=== PATIENT | male | born 1980 | race Caucasian/White ===

== ENCOUNTER 2017-11-19 12:22 | Emergency (ER) | payer SELFPAY ==
--- NOTE | 2017-11-19 12:46 | ER Document Report ---
ED Medical Screen (RME) - General Chief Complaint: Hip Pain Stated Complaint: FALL/HIP/LEG PAIN Time Seen by Provider: 11/19/17 12:39 Notes: Slipped on the ice yesterday landing on his right hip. Boyd a contused hip, but they continue to walk around on it yesterday. This morning has pain swelling was unable to get his shoe on and difficulty moving the foot. Numbness to the foot. I have greeted and performed a rapid initial assessment of this patient. A comprehensive ED assessment and evaluation of the patient, analysis of test results and completion of the medical decision making process will be conducted by additional ED providers. TRAVEL OUTSIDE OF THE [place] IN LAST 30 DAYS: No - Related Data Allergies/Adverse Reactions: No Known Allergies Allergy (Verified 11/19/17 12:23) Past Medical History - Immunizations Hx Diphtheria, Pertussis, Tetanus Vaccination: Yes Physical Exam - Vital signs Vitals: Temp Pulse Resp BP Pulse Ox 98.1 F 85 16 142/80 H 96 11/19/17 12:27 11/19/17 12:27 11/19/17 12:27 11/19/17 12:27 11/19/17 12:27 Course - Vital Signs Vital signs: Temp Pulse Resp BP Pulse Ox 98.1 F 85 16 142/80 H 96 11/19/17 12:27 11/19/17 12:27 11/19/17 12:27 11/19/17 12:27 11/19/17 12:27
[2017-11-19] MEDS ORDERED: OXYCODONE-ACETAMINOPHEN 5-325 MG TABLET PO ONE (13:17)
[2017-11-19] MEDS ORDERED: KETOROLAC TROMETHAMINE 60 MG/2 ML SDV IM ONE (13:17)
--- NOTE | 2017-11-19 13:19 | ER Document Report ---
ED General - General Chief Complaint: Hip Pain Stated Complaint: FALL/HIP/LEG PAIN Time Seen by Provider: 11/19/17 12:39 Mode of Arrival: Ambulatory Information source: Patient Notes: 37-year-old man with no medical problems presents to the emergency room with right hip and right femur pain after falling on the ice in the parking lot yesterday. Patient is having difficult time walking. He denies any medicines at this time. He denies any problems with bleeding. TRAVEL OUTSIDE OF THE [place] IN LAST 30 DAYS: No - HPI Onset: Yesterday Onset/Duration: Gradual Quality of pain: Dull Severity: Moderate Pain Level: 4 Associated symptoms: denies: Chest pain, Fever, Shortness of breath Exacerbated by: Denies Relieved by: Denies Similar symptoms previously: No Recently seen / treated by doctor: No - Related Data Allergies/Adverse Reactions: No Known Allergies Allergy (Verified 11/19/17 12:23) Past Medical History - General Information source: Patient - Social History Smoking Status: Never Smoker Cigarette use (# per day): No Chew tobacco use (# tins/day): No Frequency of alcohol use: Social Drug Abuse: None Lives with: Family Family History: CAD, DM Patient has suicidal ideation: No Patient has homicidal ideation: No - Medical History Medical History: Negative Renal/ Medical History: Denies: Hx Peritoneal Dialysis Surgical Hx: Negative - Immunizations Hx Diphtheria, Pertussis, Tetanus Vaccination: Yes Review of Systems - Review of Systems Constitutional: denies: Fever EENT: No symptoms reported Cardiovascular: No symptoms reported Respiratory: No symptoms reported Gastrointestinal: No symptoms reported Genitourinary: No symptoms reported Male Genitourinary: No symptoms reported Musculoskeletal: See HPI Skin: No symptoms reported Hematologic/Lymphatic: No symptoms reported Neurological/Psychological: No symptoms reported Physical Exam - Vital signs Vitals: Temp Pulse Resp BP Pulse Ox 98.1 F 85 16 142/80 H 96 11/19/17 12:27 11/19/17 12:27 11/19/17 12:27 11/19/17 12:27 11/19/17 12:27 Notes: Physical exam: GENERAL: 37-year-old man, alert and oriented 3, no acute distress HEAD: Atraumatic, normocephalic. EYES: Pupils equal round and reactive to light, extraocular movements intact, sclera anicteric, conjunctiva are normal. ENT: TMs normal, nares patent, oropharynx clear without exudates. Moist mucous membranes. NECK: Normal range of motion, supple without obvious mass or JVD. LUNGS: Breath sounds clear to auscultation bilaterally and equal. No wheezes rales or rhonchi. HEART: Regular rate and rhythm without murmurs, rubs or gallops. ABDOMEN: Soft, normoactive bowel sounds. No tenderness to palpation. No guarding, no rebound. No masses appreciated. Back: T and L-spine nontender EXTREMITIES: Large contusion to the right hip extending to the mid femur. Distal pulses intact. Knee nontender, tib-fib nontender, foot nontender. NEUROLOGICAL: Cranial nerves II through XII grossly intact. Normal speech, moving all extremities. PSYCH: Normal mood, normal affect. SKIN: Large contusion noted on exam as mentioned above Course - Vital Signs Vital signs: Temp Pulse Resp BP Pulse Ox 98.1 F 84 18 117/79 95 11/19/17 12:27 11/19/17 16:07 11/19/17 16:07 11/19/17 16:07 11/19/17 16:07 Discharge - Discharge Clinical Impression: Thigh contusion status post fall Condition: Stable Disposition: HOME, SELF-CARE Instructions: Contusion ([facility]) Additional Instructions: Recommendations: You could take Aleve for the next several days. Take Percocet for pain unrelieved by the Aleve. Expect to have the bruising become more obvious: It will become darker and spread. You can try ice packs over the tender area for the next 2 days. Return to the emergency room for increasing pain, redness, swelling or any concerns or getting worse. The pain medicine you're taking prescribed as a narcotic. There are several important things you should know about this medicine: 1. This medicine contains Tylenol: It is important that you do not take Tylenol (or acetaminophen) while on this medicine. Tylenol is metabolized by the liver and taking too much Tylenol (acetaminophen) can lay to liver damage and even liver failure. 2. Taking narcotics for too long can lead to physical and mental dependence. Take this medicine only if really needed and in the lowest quantity to achieve pain relief. 3. Do not drink alcohol while on this medicine. Alcohol interacts with narcotics and the combination can be dangerous. 4. Do not drive or operate machinery while on this medicine. 5. Narcotics do cause constipation, so drink plenty of fluids and daily stool softeners. Prescriptions: Oxycodone HCl/Acetaminophen [Percocet 5-325 mg Tablet] 1 - 2 tab PO ASDIR PRN # 25 tablet PRN Reason:
--- NOTE | 2017-11-19 13:23 | RADIOLOGY REPORT (SQ) ---
EXAM DESCRIPTION: HIP RIGHT AP/LATERAL COMPLETED DATE/TIME: 11/19/2017 1:07 pm REASON FOR STUDY: Fell on hip, pain and swelling COMPARISON: None. NUMBER OF VIEWS: Two views. TECHNIQUE: AP pelvis and additional frog-leg view of the right hip. LIMITATIONS: None. FINDINGS: MINERALIZATION: Normal. RIGHT HIP: No fracture or dislocation. No worrisome bone lesions. LEFT HIP: No fracture or dislocation. No worrisome bone lesions. PUBIS AND ISCHIUM: No fracture. PELVIS: No fracture. SACRUM: No fracture or dislocation. No worrisome bone lesions. LOWER LUMBAR SPINE: No fracture or dislocation. No worrisome bone lesions. No significant disc disea se. SOFT TISSUES: No findings. OTHER: No other significant finding. IMPRESSION: NEGATIVE STUDY OF THE RIGHT HIP. NO RADIOGRAPHIC EVIDENCE OF ACUTE INJURY. TECHNICAL DOCUMENTATION: JOB ID: [id number] [employer]- All Rights Reserved
--- NOTE | 2017-11-19 13:37 | RADIOLOGY REPORT (SQ) ---
EXAM DESCRIPTION: FEMUR RIGHT COMPLETED DATE/TIME: 11/19/2017 1:26 pm REASON FOR STUDY: right thigh pain s/p fall COMPARISON: None. NUMBER OF VIEWS: Two views. TECHNIQUE: Two radiographic images acquired of the right femur to include hip and knee in at least o ne projection. LIMITATIONS: None. FINDINGS: MINERALIZATION: Normal. BONES: No acute fracture. No worrisome bone lesions. SOFT TISSUES: No obvious swelling or foreign body. OTHER: No other significant finding. IMPRESSION: NEGATIVE STUDY OF THE RIGHT FEMUR. NO RADIOGRAPHIC EVIDENCE OF ACUTE INJURY. TECHNICAL DOCUMENTATION: JOB ID: [id number] [employer]- All Rights Reserved
[2017-11-19 16:08] VITALS: BP 117/79
== END 2017-11-19 16:18 | disposition home or self-care (01) ==
LOC: ER 12:22
DX: S70.11XA Contusion of right thigh, initial encounter (principal); S70.01XA Contusion of right hip, initial encounter; M25.551 Pain in right hip; M89.8X5 Other specified disorders of bone, thigh; W00.0XXA Fall on same level due to ice and snow, initial encounter; Y92.481 Parking lot as the place of occurrence of the external cause
CPT/HCPCS: 99283; 96372; 73552; 73502; J1885

== ENCOUNTER 2018-08-19 00:56 | Emergency (ER) | payer OTHER ==
--- NOTE | 2018-08-19 01:37 | ER Document Report ---
ED GI/ - General Mode of Arrival: Ambulatory Information source: Patient TRAVEL OUTSIDE OF THE [place] IN LAST 30 DAYS: No <IESHA RAWLS - Last Filed: 08/19/18 03:22> <BLAKE LOVE - Last Filed: 08/20/18 15:44> - General Chief Complaint: Flank Pain Stated Complaint: ABDOMINAL PAIN Time Seen by Provider: 08/19/18 01:29 Notes: Patient is a 38-year-old male presenting to the emergency department complaining of right flank pain onset approximately 6-7 hours ago. Patient states the pain was a sudden onset and radiates into his testicles and lower back. He states while taking a shower after the onset of his pain, the patient felt like he urinated on himself but did not see any urine. He also complains of nausea and vomiting due to the pain, urinary retention and dysuria. He denies any diarrhea, hematuria or a history of kidney stones or hernias. (IESHA RAWLS) - Related Data Allergies/Adverse Reactions: No Known Allergies Allergy (Verified 11/19/17 12:23) Past Medical History - General Information source: Patient - Social History Smoking Status: Unknown if Ever Smoked Family History: CAD, DM, Other - Kidney stones-father - Immunizations Hx Diphtheria, Pertussis, Tetanus Vaccination: Yes <IESHA RAWLS - Last Filed: 08/19/18 03:22> Review of Systems - Review of Systems Constitutional: No symptoms reported EENT: No symptoms reported Cardiovascular: No symptoms reported Gastrointestinal: See HPI Genitourinary: See HPI, Dysuria, Flank pain, Retention Male Genitourinary: See HPI, Testicular pain Musculoskeletal: No symptoms reported Skin: No symptoms reported Hematologic/Lymphatic: No symptoms reported Neurological/Psychological: No symptoms reported -: Yes All other systems reviewed and negative <IESHA RAWLS - Last Filed: 08/19/18 03:22> Physical Exam <IESHA RAWLS - Last Filed: 08/19/18 03:22> <BLAKE LOVE - Last Filed: 08/20/18 15:44> - Vital signs Vitals: Temp Pulse Resp BP Pulse Ox 98.1 F 56 L 28 H 152/71 H 98 08/19/18 01:23 08/19/18 01:23 08/19/18 01:23 08/19/18 01:23 08/19/18 01:23 - Notes Notes: GENERAL: Alert, appears uncomfortable. No acute distress. HEAD: Normocephalic, atraumatic. EYES: Pupils equal, round, and reactive to light. Extraocular movements intact. ENT: Oral mucosa moist, tongue midline. NECK: Full range of motion. Supple. Trachea midline. LUNGS: Clear to auscultation bilaterally, no wheezes, rales, or rhonchi. No respiratory distress. HEART: Regular rate and rhythm. No murmurs, gallops, or rubs. ABDOMEN: Soft, RLQ tender to palpation, guarding. No rebounding. Non-distended. Bowel sounds present in all 4 quadrants. EXTREMITIES: Moves all 4 extremities spontaneously. NEUROLOGICAL: Alert and oriented x3. Normal speech. PSYCH: Normal affect, normal mood. SKIN: Warm, dry, normal turgor. No rashes or lesions noted. BACK: Right CVA tenderness to palpation. (IESHA RAWLS) Course - Laboratory Result Diagrams: 08/19/18 02:17 08/19/18 02:17 <IESHA RAWLS - Last Filed: 08/19/18 03:22> - Laboratory Result Diagrams: 08/19/18 02:17 08/19/18 02:17 - Diagnostic Test Radiology reviewed: Reports reviewed <BLAKE LOVE - Last Filed: 08/20/18 15:44> - Re-evaluation Re-evalutation: 08/19/18 01:42 Right renal ultrasound performed at bedside, no hydronephrosis visualized. 08/19/18 02:33 Bedside bladder ultrasound performed. No significant amount of urine noted. (IESHA RAWLS) Patient was able to urinate in the emergency department found to have a 3 mm obstructing right stone. Patient shows no signs of urinary tract infection labs within normal limits are nonsignificant. Will provide pain nausea medication with urology referral and strict return precautions were provided any development of fevers or chills to return immediately to the emergency department stones as a person can become very sick quickly. Patient understands and agrees with plan 08/19/18 04:37 (BLAKE LOVE) - Vital Signs Vital signs: Temp Pulse Resp BP Pulse Ox 98.4 F 59 L 16 151/86 H 97 08/19/18 04:46 08/19/18 04:46 08/19/18 04:46 08/19/18 04:46 08/19/18 04:46 - Laboratory Laboratory results interpreted by me: 08/19/18 08/19/18 08/19/18 02:17 02:17 02:17 RDW 14.4 H Glucose 167 H Direct Bilirubin 0.5 H Urine Protein 100 H Urine Glucose (UA) 50 H Urine Blood LARGE H Urine Bilirubin SMALL H Urine Urobilinogen 2.0 H Discharge <IESHA RAWLS - Last Filed: 08/19/18 03:22> <BLAKE LOVE - Last Filed: 08/20/18 15:44> - Discharge Clinical Impression: Kidney stone on right side Condition: Stable Disposition: HOME, SELF-CARE Instructions: Kidney Stone ([facility]) Additional Instructions: Per discussion please return to the emergency department if you begin to develop any fevers or chills. Otherwise follow-up with urology referral below the first available appointment Please call urologist for appointment follow-up: [facility] Address: [address] [place] [address] Prescriptions: Ondansetron [Zofran Odt 4 mg Tablet] 1 tab PO Q4H PRN #15 tab.rapdis PRN Reason: For Nausea/Vomiting Oxycodone HCl/Acetaminophen [Percocet 10-325 Mg Tablet] 1 each PO ASDIR PRN #25 tablet PRN Reason: Scribe Attestation: 08/20/18 15:43 I personally performed the services described in the documentation, reviewed and edited the documentation which was dictated to the scribe in my presence, and it accurately records my words and actions (BLAKE LOVE) Scribe Documentation - Scribe Written by Megan:: Megan Rodriguez, 08/19/2018 01:46 acting as scribe for :: [place] <IESHA RAWLS - Last Filed: 08/19/18 03:22>
[2018-08-19] MEDS ORDERED: KETOROLAC TROMETHAMINE INJ/PF 30 MG/1 ML SDV IV ONE (01:38)
[2018-08-19] MEDS ORDERED: ONDANSETRON HCL INJ/PF 4 MG/2 ML SDV IV ONE (01:38)
[2018-08-19] MEDS ORDERED: FENTANYL CITRATE INJ/PF 100 MCG/2 ML AMPUL IV ONE (01:39)
[2018-08-19] MEDS ORDERED: NORMAL SALINE 1000 ML 1,000 ML IV ONE (02:34)
[2018-08-19 02:45] LABS: ABSOLUTE BASOPHILS # (AUTO) 0.1 10^3/uL (0.0-0.2); ABSOLUTE EOSINOPHILS # (AUTO) 0.3 10^3/uL (0.0-0.6); ABSOLUTE LYMPHOCYTES (AUTO) 1.6 10^3/uL (0.5-4.7); ABSOLUTE MONOCYTES (AUTO) 0.6 10^3/uL (0.1-1.4); ABSOLUTE NEUT (AUTO) 6.8 10^3/uL (1.7-8.2); BASOPHILS % (AUTO) 0.7 % (0-2); EOSINOPHILS % (AUTO) 3.6 % (0-6); HEMATOCRIT 40.9 % (37.9-51.0); HEMOGLOBIN 14.1 g/dL (13.5-17.0); LYMPHOCYTES % (AUTO) 17.1 % (13-45); MEAN CORPUSCULAR HEMOGLOBIN 30.4 pg (27.0-33.4); MEAN CORPUSCULAR HGB CONC 34.4 g/dL (32.0-36.0); MEAN CORPUSCULAR VOLUME 88 fl (80-97); MONOCYTES % (AUTO) 6.3 % (3-13); PLATELET COUNT 190 10^3/uL (150-450); RED BLOOD COUNT 4.63 10^6/uL (4.35-5.55); RED CELL DISTRIBUTION WIDTH 14.4 % (11.5-14.0); SEGMENTED NEUTROPHILS % (AUTO) 72.3 % (42-78); TOTAL CELLS COUNTED % (AUTO) 100 %; WHITE BLOOD COUNT 9.4 10^3/uL (4.0-10.5)
[2018-08-19 02:52] LABS: ALANINE AMINOTRANSFERASE 70 U/L (21-72); ALBUMIN 4.4 g/dL (3.5-5.0); ALKALINE PHOSPHATASE 84 U/L (38-126); ANION GAP 12 (5-19); ASPARTATE AMINO TRANSFERASE 36 U/L (17-59); BILIRUBIN,DIRECT 0.5 mg/dL (0.0-0.4); BILIRUBIN,TOTAL 0.7 mg/dL (0.2-1.3); BLOOD UREA NITROGEN 20 mg/dL (7-20); CARBON DIOXIDE 22 mmol/L (22-30); CHLORIDE 105 mmol/L (98-107); GLUCOSE 167 mg/dL (75-110); POTASSIUM 3.6 mmol/L (3.6-5.0); SODIUM 139.4 mmol/L (137-145); TOTAL PROTEIN 7.6 g/dL (6.3-8.2)
[2018-08-19 03:15] LABS: APPEARANCE,URINE TURBID; BILIRUBIN,URINE SMALL (NEGATIVE); COLOR,URINE DARK YELLOW; GLUCOSE, URINE 50 mg/dL (NEGATIVE); KETONES,URINE NEGATIVE (NEGATIVE)
[2018-08-19 03:16] LABS: LEUKOCYTE ESTERASE,URINE NEGATIVE (NEGATIVE); NITRITE,URINE NEGATIVE (NEGATIVE); PROTEIN,URINE 100 mg/dL (NEGATIVE); URINE SPECIFIC GRAVITY 1.036
[2018-08-19] MEDS ORDERED: MORPHINE SULFATE 10 MG/ML INJ IV ONE ×2 (03:32→04:43)
--- NOTE | 2018-08-19 03:53 | RADIOLOGY REPORT (SQ) ---
EXAM DESCRIPTION: CT ABDOMEN PELVIS WITH IV CONTRAST COMPLETED DATE/TME: 08/19/2018 01:37 CLINICAL HISTORY: RLQ pain, flank pain, TTP COMPARISON: None Available. TECHNIQUE: CT of the abdomen and pelvis performed following IV administration of 100 mL of Omnipaque 350. DLP: 2574.97 mGycm FINDINGS: Lung Bases: Bilateral dependent atelectasis. Bones: No destructive bone lesions identified. Abdomen: Liver: The liver has normal size and density. No intrahepatic mass or biliary dilatation. Gallbladder: No calcified gallstones. Spleen, Pancreas, and Adrenal Glands: The spleen, pancreas, and adrenal glands are unremarkable. Kidneys: Moderate right hydronephrosis and hydroureter. There is a 0.3 cm obstructing calculus at the right UVJ. No left-sided hydronephrosis. No solid enhancing renal mass. Vasculature: The aorta and IVC have normal caliber and position. The portal vein is patent. The proximal visceral and renal arteries are patent. Stomach: The stomach and duodenum have normal course. Other: No free intraperitoneal air. No free fluid or lymphadenopathy. Pelvis: Bladder: Urinary bladder is otherwise unremarkable. Bowel: No dilated loops of large or small bowel. Appendix: Normal appendix. Pelvis: Prostate is not enlarged. IMPRESSION: 1. There is a 0.3 cm obstructing calculus at the right UVJ producing moderate right hydroureter and hydronephrosis. This exam was performed according to our departmental dose-optimization program, which includes automated exposure control, adjustment of the mA and/or kV according to patient size and/or use of iterative reconstruction technique.
[2018-08-19 04:48] VITALS: BP 151/86
== END 2018-08-19 05:12 | disposition home or self-care (01) ==
LOC: ER 00:56
DX: N20.0 Calculus of kidney (principal); R10.9 Unspecified abdominal pain; M54.5 Low back pain; N50.812 Left testicular pain; N50.811 Right testicular pain; R11.2 Nausea with vomiting, unspecified; R33.9 Retention of urine, unspecified; R30.0 Dysuria
CPT/HCPCS: 96376; 99284; 96361; 96374; 96375; 36415; 85025; 80053; 81001; 74177; J3010; J1885; J2270; J2405; J7030

== ENCOUNTER 2018-09-02 17:17 | Emergency (ER) | payer OTHER ==
[2018-09-02 17:48] VITALS: BP 138/80
[2018-09-02] MEDS ORDERED: NORMAL SALINE 1000 ML 1,000 ML IV ONE (17:51)
[2018-09-02] MEDS ORDERED: MORPHINE SULFATE 10 MG/ML INJ IV ONE (17:57)
[2018-09-02] MEDS ORDERED: KETOROLAC TROMETHAMINE INJ/PF 30 MG/1 ML SDV IV ONE (17:57)
[2018-09-02] MEDS ORDERED: ONDANSETRON HCL INJ/PF 4 MG/2 ML SDV IV ONE (17:57)
[2018-09-02 18:25] LABS: ABSOLUTE EOSINOPHILS # (AUTO) 0.1 10^3/uL (0.0-0.6); ABSOLUTE LYMPHOCYTES (AUTO) 1.5 10^3/uL (0.5-4.7); ABSOLUTE MONOCYTES (AUTO) 1.1 10^3/uL (0.1-1.4); ABSOLUTE NEUT (AUTO) 11.7 10^3/uL (1.7-8.2); BASOPHILS % (AUTO) 0.3 % (0-2); HEMOGLOBIN 15.5 g/dL (13.5-17.0); MEAN CORPUSCULAR HEMOGLOBIN 30.1 pg (27.0-33.4); MEAN CORPUSCULAR HGB CONC 34.3 g/dL (32.0-36.0); MEAN CORPUSCULAR VOLUME 88 fl (80-97); MONOCYTES % (AUTO) 7.9 % (3-13); PLATELET COUNT 253 10^3/uL (150-450); RED BLOOD COUNT 5.14 10^6/uL (4.35-5.55); RED CELL DISTRIBUTION WIDTH 14.3 % (11.5-14.0); SEGMENTED NEUTROPHILS % (AUTO) 80.8 % (42-78); TOTAL CELLS COUNTED % (AUTO) 100 %; WHITE BLOOD COUNT 14.5 10^3/uL (4.0-10.5)
[2018-09-02 18:31] LABS: APPEARANCE,URINE CLOUDY; BILIRUBIN,URINE NEGATIVE (NEGATIVE); COLOR,URINE YELLOW; GLUCOSE, URINE NEGATIVE (NEGATIVE); KETONES,URINE TRACE mg/dL (NEGATIVE); LEUKOCYTE ESTERASE,URINE TRACE (NEGATIVE); NITRITE,URINE NEGATIVE (NEGATIVE); PROTEIN,URINE 100 mg/dL (NEGATIVE); URINE SPECIFIC GRAVITY 1.025
--- NOTE | 2018-09-02 18:33 | ER Document Report ---
ED GI/ - General Chief Complaint: Flank Pain Stated Complaint: FLANK PAIN Time Seen by Provider: 09/02/18 17:48 Notes: 38-year-old male with persistent right flank and right lower quadrant abdominal pain. Was diagnosed with kidney stone approximately 2 weeks ago. Continues to have pain. Intermittent fevers and chills. Pain came on severely again tonight. States that he generally just has not felt well over the last 2 weeks. TRAVEL OUTSIDE OF THE [place] IN LAST 30 DAYS: No - HPI Patient complains to provider of: Abdominal pain, Dysuria, Flank pain, Testicular pain Onset: Last week Timing/Duration: Gradual, Worse Quality of pain: Sharp, Stabbing Severity at maximum: Moderate Severity in ED: Moderate Pain Level: 3 - Related Data Allergies/Adverse Reactions: No Known Allergies Allergy (Verified 11/19/17 12:23) Past Medical History - General Information source: Patient - Social History Smoking Status: Never Smoker Chew tobacco use (# tins/day): No Frequency of alcohol use: Rare Drug Abuse: None Lives with: Spouse/Significant other Family History: CAD, DM, Other - Kidney stones-father Patient has suicidal ideation: No Patient has homicidal ideation: No Renal/ Medical History: Denies: Hx Peritoneal Dialysis - Immunizations Hx Diphtheria, Pertussis, Tetanus Vaccination: Yes Review of Systems - Review of Systems Notes: Constitutional: denies: Diaphoresis, Fever, Malaise, Weakness. Does complain of some intermittent chills EENT: denies: Eye discharge, Blurred vision, Tearing, Double vision, Nose congestion, Nose discharge, Throat swelling, Mouth pain Cardiovascular: denies: Palpitations, Heart racing, Orthopnea, Dyspnea, Chest pain Respiratory: denies: Cough, Hurts to breathe, Wheezing, Shortness of breath Gastrointestinal: Planing of right lower quadrant abdominal pain with nausea. No diarrhea. Some mild right flank pain. Genitourinary: denies: Burning, Dysuria, Discharge, Frequency,. Right flank pain is present Musculoskeletal: denies: Joint pain, Joint swelling, Muscle pain, Muscle stiffness, back pain Hematologic/Lymphatic: denies: Anemia, Easy bleeding, Easy bruising, Blood clots Neurological/Psychological: denies: Confusion, Dementia, Depression, Loss of consciousness Skin: No lesions, no masses, no skin breakdown, no abscesses Physical Exam - Vital signs Vitals: Temp Pulse Resp BP Pulse Ox 97.8 F 66 20 138/80 H 97 09/02/18 17:47 09/02/18 17:47 09/02/18 17:47 09/02/18 17:47 09/02/18 17:47 Interpretation: Normal - General General appearance: Appears well, Alert - HEENT Head: Normocephalic, Atraumatic Eyes: Normal Pupils: PERRL - Respiratory Respiratory status: No respiratory distress Chest status: Nontender Breath sounds: Normal Chest palpation: Normal - Cardiovascular Rhythm: Regular Heart sounds: Normal auscultation Murmur: No - Abdominal Inspection: Normal Distension: No distension Bowel sounds: Normal Tenderness: Tender - Tenderness to palpation of the right lower quadrant with no guarding or rebound. Organomegaly: No organomegaly - Genitourinary Inspection: Normal Tenderness: Nontender Cremasteric reflex: Normal - Back Back: Normal, Nontender - Extremities General upper extremity: Normal inspection, Nontender, Normal color, Normal ROM , Normal temperature General lower extremity: Normal inspection, Nontender, Normal color, Normal ROM , Normal temperature, Normal weight bearing. No: Jason's sign - Neurological Neuro grossly intact: Yes Cognition: Normal Orientation: AAOx4 Tera Coma Scale Eye Opening: Spontaneous Tera Coma Scale Verbal: Oriented [place] Coma Scale Motor: Obeys Commands Tera Coma Scale Total: 15 Speech: Normal Motor strength normal: LUE, RUE, LLE, RLE Sensory: Normal - Psychological Associated symptoms: Normal affect, Normal mood - Skin Skin Temperature: Warm Skin Moisture: Dry Skin Color: Normal Course - Re-evaluation Re-evalutation: 09/02/18 20:08 Vision has evidence of hydronephrosis on the ultrasound with a recent kidney stone but worsening white blood cell count and worsening urinalysis. Concern exists for possible infected and obstructed stone. We discussed the pros and cons of CT scan. At this time patient is agreeable to have a repeat CT scan. We will do this at this time. We will go ahead and start on IV antibiotics as well. 09/02/18 20:08 Laboratory 09/02/18 09/02/18 09/02/18 18:00 18:00 18:00 WBC 14.5 H RBC 5.14 Hgb 15.5 Hct 45.0 MCV 88 MCH 30.1 MCHC 34.3 RDW 14.3 H Plt Count 253 Seg Neutrophils % 80.8 H Lymphocytes % 10.0 L Monocytes % 7.9 Eosinophils % 1.0 Basophils % 0.3 Absolute Neutrophils 11.7 H Absolute Lymphocytes 1.5 Absolute Monocytes 1.1 Absolute Eosinophils 0.1 Absolute Basophils 0.0 Sodium Cancelled Potassium Cancelled Chloride Cancelled Carbon Dioxide Cancelled Anion Gap Cancelled BUN Cancelled Creatinine Cancelled Est GFR ( Amer) Cancelled Est GFR (Non-Af Amer) Cancelled Glucose Cancelled Calcium Cancelled Total Bilirubin Cancelled Direct Bilirubin Cancelled Neonat Total Bilirubin Cancelled Neonat Direct Bilirubin Cancelled Neonat Indirect Bili Cancelled AST Cancelled ALT Cancelled Alkaline Phosphatase Cancelled Total Protein Cancelled Albumin Cancelled Lipase Cancelled Urine Color YELLOW Urine Appearance CLOUDY Urine pH 5.0 Ur Specific [place] 1.025 Urine Protein 100 H Urine Glucose (UA) NEGATIVE Urine Ketones TRACE H Urine Blood LARGE H Urine Nitrite NEGATIVE Urine Bilirubin NEGATIVE Urine Urobilinogen 2.0 H Ur Leukocyte Esterase TRACE H Urine WBC (Auto) 110 Urine RBC (Auto) >182 Urine Bacteria (Auto) TRACE Urine Mucus (Auto) MANY Urine Ascorbic Acid NEGATIVE 09/02/18 18:39 WBC RBC Hgb Hct MCV MCH MCHC RDW Plt Count Seg Neutrophils % Lymphocytes % Monocytes % Eosinophils % Basophils % Absolute Neutrophils Absolute Lymphocytes Absolute Monocytes Absolute Eosinophils Absolute Basophils Sodium 138.8 Potassium 4.3 Chloride 106 Carbon Dioxide 21 L Anion Gap 12 BUN 19 Creatinine 0.88 Est GFR ( Amer) > 60 Est GFR (Non-Af Amer) > 60 Glucose 125 H Calcium 9.5 Total Bilirubin 0.9 Direct Bilirubin 0.3 Neonat Total Bilirubin Not Reportable Neonat Direct Bilirubin Not Reportable Neonat Indirect Bili Not Reportable AST 39 ALT 55 Alkaline Phosphatase 86 Total Protein 7.6 Albumin 4.6 Lipase 265.0 Urine Color Urine Appearance Urine pH Ur Specific [place] Urine Protein Urine Glucose (UA) Urine Ketones Urine Blood Urine Nitrite Urine Bilirubin Urine Urobilinogen Ur Leukocyte Esterase Urine WBC (Auto) Urine RBC (Auto) Urine Bacteria (Auto) Urine Mucus (Auto) Urine Ascorbic Acid 09/02/18 21:51 Renal Ultrasound 09/02/18 17:52 IMPRESSION: Moderate right-sided hydronephrosis. Abdomen/Pelvis CT 09/02/18 19:31 IMPRESSION: Moderate right-sided hydronephrosis and ureterectasis on the basis of a partially obstructing 4 mm right UVJ ureterolith. Will consult with a urologist at this time based on this moderate right-sided hydronephrosis and 4 mm stone which has been present now for 2 weeks. 09/02/18 22:[address] Portillo Mckeon with [facility]. Either on Tuesday or Tuesday. Follow-up information has been provided. We will keep on antibiotics , nausea medication and Flomax. Comfortable at this time discharging. Patient is without pain at this time. - Vital Signs Vital signs: Temp Pulse Resp BP Pulse Ox 97.8 F 66 20 138/80 H 97 09/02/18 17:47 09/02/18 17:47 09/02/18 17:47 09/02/18 17:47 09/02/18 17:47 - Laboratory Result Diagrams: 09/02/18 18:00 09/02/18 18:39 Laboratory results interpreted by me: 09/02/18 09/02/18 09/02/18 18:00 18:00 18:39 WBC 14.5 H RDW 14.3 H Seg Neutrophils % 80.8 H Lymphocytes % 10.0 L Absolute Neutrophils 11.7 H Carbon Dioxide 21 L Glucose 125 H Urine Protein 100 H Urine Ketones TRACE H Urine Blood LARGE H Urine Urobilinogen 2.0 H Ur Leukocyte Esterase TRACE H Discharge - Discharge Clinical Impression: Kidney stone on right side Condition: Good Disposition: HOME, SELF-CARE Instructions: Kidney Stone ([facility]) Additional Instructions: It is very important that you follow-up with a urologist soon as possible. Dr. Mckeon or 1 of his colleagues will see you in [place]. Please call their office first thing Tuesday to schedule an appointment. All of your medications as prescribed. Return immediately if you develop inability to tolerate your medications. Prescriptions: Cephalexin Monohydrate [Keflex 500 mg Capsule] 500 mg PO Q6H 7 Days #28 capsule Ondansetron [Zofran Odt 4 mg Tablet] 1 - 2 tab PO Q4H PRN #15 tab.rapdis PRN Reason: For Nausea/Vomiting Tamsulosin HCl [Flomax 0.4 mg Cap.sr] 0.4 mg PO DAILY #7 cap.sr.24h Referrals: PORTILLO MCKEON MD [NO LOCAL MD] - 09/04/18 [facility] [Provider Group] - 09/04/18
[2018-09-02 19:06] LABS: ALANINE AMINOTRANSFERASE 55 U/L (21-72); ALBUMIN 4.6 g/dL (3.5-5.0); ALKALINE PHOSPHATASE 86 U/L (38-126); ANION GAP 12 (5-19); ASPARTATE AMINO TRANSFERASE 39 U/L (17-59); BILIRUBIN,DIRECT 0.3 mg/dL (0.0-0.4); BILIRUBIN,TOTAL 0.9 mg/dL (0.2-1.3); BLOOD UREA NITROGEN 19 mg/dL (7-20); CALCIUM 9.5 mg/dL (8.4-10.2); CARBON DIOXIDE 21 mmol/L (22-30); CHLORIDE 106 mmol/L (98-107); GLUCOSE 125 mg/dL (75-110); POTASSIUM 4.3 mmol/L (3.6-5.0); SODIUM 138.8 mmol/L (137-145); TOTAL PROTEIN 7.6 g/dL (6.3-8.2)
--- NOTE | 2018-09-02 19:20 | RADIOLOGY REPORT (SQ) ---
EXAM DESCRIPTION: U/S RETROPERITON LTD COMPLETED DATE/TIME: 09/02/2018 6:53 pm REASON FOR STUDY: hx of stones right flank pain COMPARISON: None. TECHNIQUE: Dynamic and static grayscale images acquired of the kidneys and bladder and recorded on P ACS. Additional selected color Doppler and spectral images recorded. LIMITATIONS: Acoustic impedance. FINDINGS: RIGHT KIDNEY: Normal size. Normal echogenicity. No solid or suspicious masses. Mode rate hydronephrosis. No calcifications. LEFT KIDNEY: Normal size. Normal echogenicity. No solid or suspicious masses. No hydronephrosi s. No calcifications. BLADDER: Not visualized. OTHER FINDINGS: No other significant finding. IMPRESSION: Moderate right-sided hydronephrosis. TECHNICAL DOCUMENTATION: JOB ID: [id number] [employer]- All Rights Reserved Reading location - IP/workstation name: [email or web address]
[2018-09-02] MEDS ORDERED: CEFTRIAXONE INJ 1000 MG VIAL IV ONE (19:30)
--- NOTE | 2018-09-02 20:15 | RADIOLOGY REPORT (SQ) ---
EXAM DESCRIPTION: CT ABD/PELVIS NO ORAL OR IV COMPLETED DATE/TIME: 09/02/2018 8:00 pm REASON FOR STUDY: rlq pain COMPARISON: None. TECHNIQUE: CT scan of the abdomen and pelvis performed without intravenous or oral contrast. Images reviewed with lung, soft tissue, and bone windows. Reconstructed coronal and sagittal MPR images revi ewed. All images stored on PACS. All CT scanners at this facility use dose modulation, iterative reconstruction, and/or weight based d osing when appropriate to reduce radiation dose to as low as reasonably achievable (ALARA). [facility]: Dose Right [facility]: CareDose [facility]: Dose Right [facility]: Teradose 4D [facility]: [employer] RADIATION DOSE: CT Rad equipment meets quality standard of care and radiation dose reduction techniq ues were employed. CTDIvol: 20.6 mGy. DLP: 1232 mGy-cm.mGy. LIMITATIONS: None. FINDINGS: LOWER CHEST: No significant findings. No nodules or infiltrates. NON-CONTRASTED LIVER, SPLEEN, ADRENALS: Evaluation limited by lack of IV contrast. No identified sign ificant masses. PANCREAS: No masses. No peripancreatic inflammatory changes. GALLBLADDER: No identified stones by CT criteria. No inflammatory changes to suggest cholecystitis. RIGHT KIDNEY AND URETER: No suspicious masses. Assessment limited by lack of IV contrast. No signif icant calcifications. Moderate hydronephrosis and ureterectasis on the basis of a 4 mm ureterolith at the ureterovesicular junction. LEFT KIDNEY AND URETER: No suspicious masses. Assessment limited by lack of IV contrast. No signifi cant calcifications. No hydronephrosis or hydroureter. AORTA AND RETROPERITONEUM: No aneurysm. No retroperitoneal masses or adenopathy. BOWEL AND PERITONEAL CAVITY: No obvious masses or inflammatory changes. No free fluid. APPENDIX: Normal. PELVIS, BLADDER, AND ABDOMINAL WALL:No abnormal masses. No free fluid. Bladder normal. BONES: No significant findings. OTHER: No other significant finding. IMPRESSION: Moderate right-sided hydronephrosis and ureterectasis on the basis of a partially obstru cting 4 mm right UVJ ureterolith. COMMENT: Quality ID # [id number]: Final reports with documentation of one or more dose reduction techniques (e.g., Automated exposure control, adjustment of the mA and/or kV according to patient size, use of iterative reconstruction technique) TECHNICAL DOCUMENTATION: JOB ID: [id number] [employer]- All Rights Reserved Reading location - IP/workstation name: [email or web address]
[2018-09-02] MEDS ORDERED: TAMSULOSIN HCL 0.4 MG CAP.SR.24H PO ONE (21:12)
[2018-09-02] MEDS ORDERED: ONDANSETRON ODT 4 MG TAB (6 TAB/ER DISP) PO PRN (22:07)
[2018-09-02] MEDS ORDERED: HYDROCODONE/ACETAMINOPHEN 5-325 MG (6 TAB/ER DISP) PO PRN (22:07)
== END 2018-09-02 22:56 | disposition home or self-care (01) ==
LOC: ER 17:17
DX: N20.0 Calculus of kidney (principal); R10.31 Right lower quadrant pain; Z87.442 Personal history of urinary calculi
CPT/HCPCS: 99284; 96361; 96375; 96365; 36415; 87040; 87086; 83690; 85025; 80053; 81001; 76775; 74176; J1885; J2270; J0696; J2405; J7030

== ENCOUNTER 2019-09-22 19:55 | Emergency (ER) | payer SELFPAY ==
[2019-09-22] MEDS ORDERED: IBUPROFEN 800 MG TABLET PO ONE (20:18)
--- NOTE | 2019-09-22 20:19 | ER Document Report ---
ED Medical Screen (RME) - General Chief Complaint: Ankle Injury Stated Complaint: LEFT KNEE PAIN Time Seen by Provider: 09/22/19 20:18 Mode of Arrival: Ambulatory Information source: Patient Notes: Patient states that he stepped off of a curb wrong with rolling his ankle. Patient with left lateral ankle pain. Patient states pain did radiate into the foot although foot pain seems to be improved at this time. Patient denies any other injury. I have greeted and performed a rapid initial assessment of this patient. A comprehensive ED assessment and evaluation of the patient, analysis of test results and completion of the medical decision making process will be conducted by additional ED providers. TRAVEL OUTSIDE OF THE [place] IN LAST 30 DAYS: No - Related Data Allergies/Adverse Reactions: No Known Allergies Allergy (Verified 11/19/17 12:23) Past Medical History - Social History Chew tobacco use (# tins/day): No Frequency of alcohol use: Occasional Drug Abuse: None Renal/ Medical History: Denies: Hx Peritoneal Dialysis - Immunizations Hx Diphtheria, Pertussis, Tetanus Vaccination: Yes Physical Exam - Vital signs Vitals: Temp Pulse Resp BP Pulse Ox 98.7 F 85 16 157/83 H 97 09/22/19 20:00 09/22/19 20:00 09/22/19 20:00 09/22/19 20:00 09/22/19 20:00 - General General appearance: Alert Notes: Left ankle tenderness with 2+ edema over the lateral malleolar area Course - Vital Signs Vital signs: Temp Pulse Resp BP Pulse Ox 98.7 F 85 16 157/83 H 97 09/22/19 20:00 09/22/19 20:00 09/22/19 20:00 09/22/19 20:00 09/22/19 20:00
--- NOTE | 2019-09-22 21:20 | ER Document Report ---
HPI - HPI Time Seen by Provider: 09/22/19 20:18 Pain Level: 4 Context: Patient is a 39-year-old male that comes emergency department for chief complaint of injury to the left ankle. He states that he stepped off a curb and accidentally inverted his ankle, he states that he fell and he sustained scrapes to his knees and hands but he denies head injury. He denies any other injury. Tetanus up-to-date within 5 years. He states the left ankle is painful to walk on it has become swollen, injury happened only a few hours ago. He denies any daily medications or past medical history. Past Medical History - General Information source: Patient - Social History Smoking Status: Never Smoker Chew tobacco use (# tins/day): No Frequency of alcohol use: Occasional Drug Abuse: None Lives with: Family Family History: CAD, DM, Other - Kidney stones-father Patient has suicidal ideation: No Patient has homicidal ideation: No Renal/ Medical History: Denies: Hx Peritoneal Dialysis Surgical Hx: Negative - Immunizations Hx Diphtheria, Pertussis, Tetanus Vaccination: Yes Vertical Provider Document - CONSTITUTIONAL General Appearance: WD/WN, No Apparent Distress, Obese - INFECTION CONTROL TRAVEL OUTSIDE OF THE [place] IN LAST 30 DAYS: No - HEENT HEENT: Atraumatic, Normal ENT Exam, Normocephalic - NECK Neck: Normal Inspection - RESPIRATORY Respiratory: Breath Sounds Normal, No Respiratory Distress - CARDIOVASCULAR Cardiovascular: Regular Rate, Regular Rhythm - GI/ABDOMEN Gastrointestinal: Abdomen Soft, Abdomen Non-Tender - BACK Back: Normal Inspection - MUSCULOSKELETAL/EXTREMETIES Musculoskeletal/Extremeties: MAEW, FROM, Tender - Tenderness with soft tissue swelling over the lateral malleolus and top of the foot at the left ankle area. Normal capillary refill and sensation. Normal coloration. Small abrasions to the palms of the hands and the knees without bruising, swelling, bony tenderness. Otherwise unremarkable extremities. - NEURO Level of Consciousness: Awake, Alert, Appropriate Motor/Sensory: No Motor Deficit, No Sensory Deficit - DERM Integumentary: Warm, Dry, No Rash Course - Re-evaluation Re-evalutation: Patient with very minimal abrasions over the palms and knees, no tenderness over the wrists or knees, only complaint is left ankle pain. There is 2+ swelling over the lateral malleolus of the left ankle. Remaining exam is unremarkable. X-rays negative. Discussed wound care, follow-up, care of the left ankle sprain, return precautions. Patient states appreciation and agreement. - Vital Signs Vital signs: Temp Pulse Resp BP Pulse Ox 98.7 F 85 16 157/83 H 97 09/22/19 20:00 09/22/19 20:00 09/22/19 20:00 09/22/19 20:00 09/22/19 20:00 - Diagnostic Test Radiology reviewed: Image reviewed, Reports reviewed Procedures - Immobilization Left ankle Pre-Proc Neuro Vasc Exam: Normal Immobilizer type: Wyatt wrap, Ankle stirrup Performed by: PCT Post-Proc Neuro Vasc Exam: Normal Alignment checked and good: Yes Discharge - Discharge Clinical Impression: Left ankle injury Qualifiers: Encounter type: initial encounter Qualified Code(s): S99.912A - Unspecified injury of left ankle, initial encounter Condition: Stable Disposition: HOME, SELF-CARE Additional Instructions: The x-ray does not show a fracture, this is consistent with a sprain of the ATF ligament. I recommend that you elevate when possible, ice 3-4 times a day for 10 to 15 minutes, take the anti-inflammatory as prescribed, and use the Wyatt wrap/ankle stirrup and crutches for the first 2 to 3 days. Resume normal activity as tolerated. Follow-up with primary care. Return for any concerning symptoms including severe swelling or pain. Prescriptions: Naproxen 500 mg PO BID PRN #20 tablet PRN Reason:
--- NOTE | 2019-09-22 21:22 | RADIOLOGY REPORT (SQ) ---
EXAM DESCRIPTION: XR ANKLE 3 OR MORE VIEWS COMPLETED DATE/TME: 09/22/2019 20:18 CLINICAL HISTORY: 39 years, Male, fell of curb, rolled ankle COMPARISON: None. NUMBER OF VIEWS: Three TECHNIQUE: Frontal, oblique, and lateral radiographs were obtained LIMITATIONS: None. FINDINGS: Exquisite soft tissue swelling is noted about the lateral aspect of the ankle. 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 Otherwise, remaining visualized osseous structures appear overall normal without definite acute fracture or dislocation. IMPRESSION: Lateral soft tissue swelling without underlying acute osseous anomaly. copyright 2010 [employer]- All Rights Reserved
--- NOTE | 2019-09-22 21:33 | RADIOLOGY REPORT (SQ) ---
EXAM DESCRIPTION: XR FOOT 3 OR MORE VIEWS CLINICAL INDICATION: 39-year-old male, fell off curb and rolled ankle. TECHNIQUE: Three views LEFT foot were obtained in AP, lateral and oblique projections COMPARISON: None. FINDINGS: Degenerative changes of the first metatarsophalangeal joint with hallux valgus deformity. There is no fracture or dislocation. The joint spaces are preserved. Soft tissue swelling of the lateral malleolus. Small plantar heel spur. IMPRESSION: No acute radiographic abnormality.
[2019-09-22 22:36] VITALS: BP 151/93
== END 2019-09-22 22:38 | disposition home or self-care (01) ==
LOC: ER 19:55
DX: S99.912A Unspecified injury of left ankle, initial encounter (principal); S80.212A Abrasion, left knee, initial encounter; S80.211A Abrasion, right knee, initial encounter; X50.0XXA Overexertion from strenuous movement or load, initial encounter
CPT/HCPCS: 73610; 73630; L1902